=== PATIENT | female | born 1955 | race Caucasian/White ===

== ENCOUNTER 2017-04-25 11:02 | Day surgery (SDC) | payer MEDICARE ==
[2017-04-21 10:59] VITALS: BMI 34.0
[2017-04-25] MEDS ORDERED: IBUPROFEN 800 MG/8 ML IJ IVPB PRN (13:22)
[2017-04-25] MEDS ORDERED: ONDANSETRON 4 MG/2 ML VIAL IVPUSH PRN (13:22)
[2017-04-25] MEDS ORDERED: oxyCODONE HCL 5 MG TABLET PO PRN (13:22)
[2017-04-25] MEDS ORDERED: LACTATED RINGERS SOLUTION 1,000 ML IV SCH (13:30)
--- NOTE | 2017-04-25 13:57 | OP ---
Operative Note - Note: Operative Date: 04/25/17 Pre-Operative Diagnosis: Right kidney stone Operation: Right ESWL Findings: 10 mm mid pole kidney stone Right Post-Operative Diagnosis: Same as Pre-op Anesthesia: Fractional Operative Report Dictated: Yes
[2017-04-25 16:24] VITALS: BP 141/69; PULSE 71; TEMP 98.1
--- NOTE | 2017-04-26 09:54 | OP ---
DATE OF OPERATION: 04/25/2017 PREOPERATIVE DIAGNOSIS: Right renal stone. POSTOPERATIVE DIAGNOSIS: Right renal stone. PROCEDURE: Right extracorporeal shock wave lithotripsy. ATTENDING: Geovanni Dubois MD ANESTHESIA: Fractional. DESCRIPTION OF OPERATION: The patient was brought in the operating room, placed in supine position on the operating room table. Ultrasonography and fluoroscopy were performed. A 10-mm right mid-pole stone was identified. At this point, extracorporeal shock wave lithotripsy was administered; 2500 impulses at 20 joules of power were administered to the stone. The stone was radiopaque, and no changes were seen under ultrasonography. The disposition of the patient was to the recovery room. GEOVANNI DUBOIS M.D. [id number]
== END 2017-04-25 14:15 | disposition home or self-care (01) ==
LOC: JASU-SURG 11:02
PROVIDERS: ATTEND Urology
PROC: 0TF3XZZ Fragmentation in Right Kidney Pelvis, External Approach (ICD-10-PCS; principal; 2017-04-25 13:15)
DX: N20.0 Calculus of kidney (principal)

== ENCOUNTER 2020-04-21 07:55 | Day surgery (SDC) | payer OTHER ==
[2020-04-21 09:46] LABS: BASO % 0.5 % (0-2.0); EOS % 0.9 % (0-4.5); HEMATOCRIT 44.3 % (32.4-45.2); HEMOGLOBIN 15.1 GM/dL (10.7-15.3); LYMPH % 21.1 % (8-40); MCH 29.2 pg (25.7-33.7); MCHC 34.1 g/dl (32.0-36.0); MEAN CELL VOLUME 85.7 fl (80-96); MONO % 4.7 % (3.8-10.2); NEUT % 72.8 % (42.8-82.8); PLATELET COUNT 249 K/MM3 (134-434); RBC 5.18 M/mm3 (3.60-5.2); RDW 13.6 % (11.6-15.6); WHITE BLOOD COUNT 9.6 K/mm3 (4.0-10.0)
[2020-04-21 09:53] LABS: INR 1.06 (0.83-1.09); PROTHROMBIN TIME (PATIENT) 12.8 SEC (9.7-13.0); URINE APPEARANCE Clear; URINE BILIRUBIN Negative (NEGATIVE); URINE COLOR Yellow; URINE GLUCOSE (UA) Negative (NEGATIVE); URINE KETONE Negative (NEGATIVE); URINE LEUK ESTERASE Negative (NEGATIVE); URINE NITRITE Negative (NEGATIVE); URINE PROTEIN Negative (NEGATIVE); URINE UROBILINOGEN 0.2 mg/dL (0.2-1.0)
[2020-04-21 09:56] LABS: ACTIVATED PTT 30.2 SECONDS (25.2-36.5)
[2020-04-21 10:02] LABS: POTASSIUM 4.1 mmol/L (3.5-5.1)
[2020-04-21 10:04] LABS: ALBUMIN 3.8 g/dl (3.4-5.0); CALCIUM 9.7 mg/dL (8.5-10.1)
[2020-04-21 10:05] LABS: BLOOD UREA NITROGEN 8.7 mg/dL (7-18)
[2020-04-21 10:08] LABS: CREATININE 0.6 mg/dL (0.55-1.3)
[2020-04-21 10:09] LABS: BILIRUBIN,TOTAL 0.3 mg/dL (0.2-1); TOT PROT 7.1 g/dl (6.4-8.2)
[2020-04-21 10:21] LABS: EPI CELLS 12.7 /uL (0-25.1); HYALINE CASTS 3.46 /uL (0-3.1); URINE BACTERIA 41.1 /uL (0-1359); URINE RBC 18.2 /uL (0-23.9); URINE WBC 10.2 /uL (0-25.8)
[2020-04-21] MEDS ORDERED: MIDAZOLAM HCL 2 MG/2 ML SINGLE DOSE VIAL ONE (12:06)
[2020-04-21] MEDS ORDERED: PROPOFOL 20 ML ONE (12:06)
[2020-04-21] MEDS ORDERED: SUCCINYLCHOLINE CHLORIDE 200 MG/10 ML SYRINGE ONE (12:06)
[2020-04-21] MEDS ORDERED: ACETAMINOPHEN INJECTION 100 ML IVPB ONE (12:49)
[2020-04-21] MEDS ORDERED: LABETALOL HCL 5 MG/1 ML (100MG/20 ML VIAL) ONE (13:28)
[2020-04-21] MEDS ORDERED: ONDANSETRON 4 MG/2 ML VIAL IVPUSH PRN (13:50)
[2020-04-21] MEDS ORDERED: PROMETHAZINE HCL 25 MG/1 ML VIAL IVPUSH PRN (13:50)
[2020-04-21] MEDS ORDERED: LABETALOL HCL 5 MG/1 ML (100MG/20 ML VIAL) IVPUSH PRN (13:50)
[2020-04-21] MEDS ORDERED: LACTATED RINGERS SOLUTION 1,000 ML IV SCH (14:00)
[2020-04-21 15:17] VITALS: BP 155/77; PULSE 61; TEMP 97.4
== END 2020-04-21 15:30 | disposition home or self-care (01) ==
LOC: JER 07:55 → JASUSAT 10:01
PROVIDERS: ATTEND Urology
PROC: 0TF78ZZ Fragmentation in Left Ureter, Via Natural or Artificial Opening Endoscopic (ICD-10-PCS; principal; 2020-04-21 12:30)
DX: N20.1 Calculus of ureter (principal)
CPT/HCPCS: 36415; 71046-TC-FY; 76000-TC-FY; 80053; 81003; 85025; 85610; 85730; 86850; 86900; 86901; 87086; 93005; 93010; 94760; 99285-25; C9803; J0131; U0003